=== PATIENT | female | born 1980 | race Caucasian/White ===

== ENCOUNTER 2017-04-28 | Emergency (ER) | payer OTHER ==
[~2017-04-28] VITALS: Ht 157.5 cm; Wt 74.8 kg
[2017-04-28 00:05] VITALS: BP 126/65
--- NOTE | 2017-04-28 00:05 | NUR ---
BIBA TO ER BED 3
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
--- NOTE | 2017-04-28 00:14 | NUR ---
[place] [employer] at bedside.
[2017-04-28] MEDS ORDERED: MORPHINE SULFATE 2 MG/ML SYR IM ONE ×2 (00:35→02:55)
--- NOTE | 2017-04-28 00:54 | NUR ---
Pt ambulated to restroom to provide UA.
--- NOTE | 2017-04-28 01:02 | NUR ---
[place] [employer] at bedside documenting pictures.
--- NOTE | 2017-04-28 01:05 | NUR ---
Pt c/o nausea and anxiety. Pt states "I need something for my anxiety with everything going on." Pt is cooperative at this time.
--- NOTE | 2017-04-28 01:06 | NUR ---
Dr. Fulton made aware.
--- NOTE | 2017-04-28 01:20 | NUR ---
Pt refusing to go to CT. Pt states "I haven't gotten my anxiety medications." Dr. Fulton aware.
[2017-04-28] MEDS ORDERED: LORazepam 2 MG/ML VIAL IM/IVP ONE (01:25)
--- NOTE | 2017-04-28 01:45 | NUR ---
Pt resting calmly at this time. Water provided. No distress noted. VSS.
--- NOTE | 2017-04-28 02:13 | NUR ---
Pt returned from CT scan.
--- NOTE | 2017-04-28 02:17 | NUR ---
Pt c/o 05/09 at this time. Pt states "It's coming back and I'm feeling nauseous." Dr. Fulton notified.
--- NOTE | 2017-04-28 02:56 | NUR ---
Pt found sleeping comfortably. No distress noted.
--- NOTE | 2017-04-28 03:46 | NUR ---
Taxi voucher provided to patient to be taken home.
--- NOTE | 2017-04-28 03:46 | NUR ---
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
[2017-04-28 04:38] VITALS: BP 118/80
--- NOTE | 2017-04-28 04:38 | NUR ---
Patient discharged with v/s stable. Written and verbal after care instructions given and explained. Patient alert, oriented and verbalized understanding of instructions. Ambulatory with steady gait. Pt assisted to taxi cab. All questions addressed prior to discharge. ID band removed. Patient advised to follow up with PMD. Rx of Tylenol with Codeine #3 given. Patient educated on indication of medication including possible reaction and side effects. Opportunity to ask questions provided and answered.
== END 2017-04-28 04:38 | disposition home or self-care (01) ==
LOC: MED
DX: S60.222A Contusion of left hand, initial encounter (principal); R51 Headache; M79.602 Pain in left arm; Z88.8 Allergy status to other drugs, medicaments and biological substances; Y04.2XXA Assault by strike against or bumped into by another person, initial encounter; Y93.89 Activity, other specified; Y92.89 Other specified places as the place of occurrence of the external cause; Y99.8 Other external cause status
CPT/HCPCS: 70450; 70486; 73130; 81025; 90471; 90715; 96372; 99284; J2060; J2270